=== PATIENT | female | born 1950 | race Caucasian/White ===

== ENCOUNTER 2019-01-03 18:53 | Emergency (ER) | payer OTHER ==
[~2019-01-03] VITALS: Ht 175.3 cm; Wt 61.2 kg
[~2019-01-03 18:53] MED LIST: ALBU90OI INH; BENZ2 PO; CIPR500 PO; HALO5 PO
[2019-01-03] MEDS ORDERED: Cephalexin500 MG PO (21:27)
== END 2019-01-03 21:50 | disposition home or self-care (01) ==
LOC: ER 18:53
DX: L03.115 Cellulitis of right lower limb (principal); L98.9 Disorder of the skin and subcutaneous tissue, unspecified; F20.9 Schizophrenia, unspecified; F17.210 Nicotine dependence, cigarettes, uncomplicated; Z88.5 Allergy status to narcotic agent; Z79.899 Other long term (current) drug therapy
CPT/HCPCS: 73610; 87070; 87077; 87147; 87186; 87205; 99283-25

== ENCOUNTER 2019-01-07 09:47 | Inpatient (IN) | payer SELFPAY ==
[~2019-01-07] VITALS: Ht 175.3 cm; Wt 66.2 kg
[~2019-01-07 09:47] MED LIST changes: +Cephalexin500 MG PO
[2019-01-07 11:28] LABS: BASOPHILS ABSOLUTE AUTO 0.02 K/mm3 (0.00-0.23); BASOPHILS PERCENT AUTO 0 % (0-2); EOSINOPHILS ABSOLUTE AUTO 0.31 K/mm3 (0.00-0.68); EOSINOPHILS PERCENT AUTO 5 % (0-6); Hemoglobin 10.1 g/dL (11.5-16.0); IMMATURE GRAN ABSOLUTE AUTO 0.04 K/mm3 (0.00-0.10); IMMATURE GRAN PERCENT AUTO 1 % (0-1); LYMPHOCYTES ABSOLUTE AUTO 1.25 K/mm3 (0.84-5.20); LYMPHOCYTES PERCENT AUTO 19 % (21-46); MONOCYTES ABSOLUTE AUTO 0.59 K/mm3 (0.16-1.47); MONOCYTES PERCENT AUTO 9 % (4-13); Mean Corpuscular HGB 29.3 pg (26.0-34.0); Mean Corpuscular HGB Conc 31.6 g/dL (31.5-36.5); Mean Corpuscular Volume 93 fL (80-100); Mean Platelet Volume 10.1 fL (9.1-12.4); NEUTROPHILS ABSOLUTE AUTO 4.38 K/mm3 (1.96-9.15); NEUTROPHILS PERCENT AUTO 66 % (41-73); Platelet Count 250 K/mm3 (150-400); RDW Coefficient Variation 16.1 % (11.7-14.2); RDW Standard Deviation 55.3 fL (35.1-46.3); Red Blood Cell Count 3.45 M/mm3 (3.80-5.20); White Blood Cell Count 6.59 K/mm3 (4.00-11.30)
[2019-01-07 11:54] LABS: Albumin, Blood 2.9 g/dL (3.4-5.0); Albumin/Globulin Ratio 0.7 (0.8-1.8); Bilirubin, Total 0.4 mg/dL (0.1-1.0); Bun/Creatinine Ratio 32.5 (12.0-20.0); Calcium, Blood 8.5 mg/dL (8.5-10.1); Globulin, Blood 4.1 g/dL (2.2-4.0); Potassium, Blood 4.2 mmol/L (3.5-5.5)
--- NOTE | 2019-01-07 18:30 | NUR ---
PATIENT IS ALERT AND ORIENTED AND COOPERATIVE WITH CARE. SHE HAS A FLIGHT OF IDEAS. SHE IS A CURRENT SMOKER. HER RIGHT LEG/FOOT IS RED AND SWOLLEN, WITH INFECTED ULCERS. PHOTOS TAKEN AND IN CHART. PATIENT IS INDEPENDENT IN HER ROOM. SHE AMBULATES WELL. PAIN TREATED PER ROSA. WILL CONTINUE TO MONITOR.
[2019-01-08 05:55] LABS: BASOPHILS ABSOLUTE AUTO 0.02 K/mm3 (0.00-0.23); BASOPHILS PERCENT AUTO 0 % (0-2); EOSINOPHILS ABSOLUTE AUTO 0.18 K/mm3 (0.00-0.68); EOSINOPHILS PERCENT AUTO 4 % (0-6); Hematocrit 30.8 % (33.0-51.0); Hemoglobin 9.5 g/dL (11.5-16.0); IMMATURE GRAN ABSOLUTE AUTO 0.02 K/mm3 (0.00-0.10); IMMATURE GRAN PERCENT AUTO 0 % (0-1); LYMPHOCYTES ABSOLUTE AUTO 1.25 K/mm3 (0.84-5.20); LYMPHOCYTES PERCENT AUTO 27 % (21-46); MONOCYTES ABSOLUTE AUTO 0.48 K/mm3 (0.16-1.47); MONOCYTES PERCENT AUTO 11 % (4-13); Mean Corpuscular HGB 28.6 pg (26.0-34.0); Mean Corpuscular HGB Conc 30.8 g/dL (31.5-36.5); Mean Corpuscular Volume 93 fL (80-100); Mean Platelet Volume 10.1 fL (9.1-12.4); NEUTROPHILS ABSOLUTE AUTO 2.64 K/mm3 (1.96-9.15); NEUTROPHILS PERCENT AUTO 58 % (41-73); Platelet Count 254 K/mm3 (150-400); RDW Coefficient Variation 16.1 % (11.7-14.2); RDW Standard Deviation 54.8 fL (35.1-46.3); Red Blood Cell Count 3.32 M/mm3 (3.80-5.20); White Blood Cell Count 4.59 K/mm3 (4.00-11.30)
--- NOTE | 2019-01-08 06:08 | NUR ---
SHIFT SUMMARY A/O, ABLE TO MAKE NEEDS KNOWN. COOPERATIVE WITH CARE. ANSWERS QUESTIONS APPROPRIATELY. NO C/O PAIN/DISCOMFORT. DID HOWEVER COMPLAIN OF ITCHING; STATES SHE MAY HAVE COME IN CONTACT WITH [facility]. NEW ORDER FROM ON-CALL PHYSICIAN FOR BENADRYL OT DOSE. NO ACUTE CHANGES. IV FLUIDS CONTINUING TO INFUSE WITHOUT COMPLICATIONS. HYPERTENSIVE THIS AM; HOWEVER, APPEARS ON TREND WITH PREVIOUS PRESSURES. MILD TACHYPNIA; ALL OTHERS VS STABLE. DID NOT APPEAR TO REST MUCH T/O SHIFT. NO OTHER ACUTE CHANGES. BED IN LOWEST POSITION. CALL LIGHT AND BELONGINGS WITHIN REACH. WCTM. REPORT TO ONCOMING RN.
[2019-01-08 06:24] LABS: Bun/Creatinine Ratio 45.5 (12.0-20.0); Calcium, Blood 8.6 mg/dL (8.5-10.1); Creatinine, Blood 1.23 mg/dL (0.40-1.00); Potassium, Blood 4.5 mmol/L (3.5-5.5)
--- NOTE | 2019-01-08 11:09 | NUR ---
Patient's speech is a bit slurred and quiet but still she is able to communicate. Patient states that she is homeless and can't negociate through the Social Security system well enough to receive any financial assistance. I point out that we have great social workers and discharge planners that can help but patient says that no one can help her and that she will leave here (the hospital) to live out on the streets again. I explore areas of dinity, evelia and possible resources and patient cycles back to this disdain she has for the Social security system, [place] and the jainism community. Patient seems weary, sad and hopeless and talks herself away from tangible resources and positve attitudes. Patient allowed me to pray for her and said, "That was very nice," at the conclusion of the prayer. I am not sure if anything was accomplished in my visit except for, I believe, patient felt cared for and heard for the 40 minutes I was in her room.
--- NOTE | 2019-01-08 18:33 | NUR ---
SHIFT SUMMARY IMC COMPLAINED OF RLE PAIN IN HER FOOT, RECEIVED TRAMADOL AND OXY THIS SHIFT, WHICH HELPED. UP INDEPENDENTLY IN ROOM. HAD 2 BM. MIVF RUNNING. POTENTIAL DISCHARGE MONDAY, WILL NEED SS TO CONSULT FOR SAFE DISCHARGE PLANS. CALL LIGHT IN REACH, WCTM
--- NOTE | 2019-01-09 06:32 | NUR ---
SHIFT SUMMARY PT IS A 68 Y/O FEMALE, ADMITTED FOR RLE CELLULITIS. SHE IS A&O X 3, WITH INTERMITTENT CONFUSION R/T HER SCHIZOPHRENIA, AND INDEPENDENT IN THE ROOM. PT DENIED ANY COMPLAINTS OF PAIN, NAUSEA OR SOB AND SLEPT WELL DURING THE NIGHT. PT RECEIVED NS AT 50 ML/HR THROUGH THE NIGHT. PTS BP WAS ELEVATED DURING THE NIGHT, AT 187/95 DURING AM VITALS. ALL OTHER VITALS STABLE. PT REFUSED AM LABS. NO OTHER ACUTE CHANGES IN PT CONDITION NOTED. WILL CONTINUE TO MONITOR AND TREAT PER EMAR UNTIL HAND OFF TO DAY SHIFT.
--- NOTE | 2019-01-09 11:17 | NUR ---
Patient is sleeping but easily awakens to the sound of her name. Patient's first question is "Am I Dying?" I take some time to talk about and dying and assure her that she is not dying at this particular time. Patient then tells me about the difficulties of living on the streets and says that at 68 years old she is too old for "this." She tells me of the good friends she has that are homeless too. We discuss the life she would like to have. She mentions things like being safe enough to sleep 7 or 8 hours at a time, of having food and water and a roof over her head. I explain that a director social will help her we these kinds of issues (I left a message with her director social about these housing concerns, yesterday). I provided emotional support, a calming presence and prayer. Patient voices appreciation.
--- NOTE | 2019-01-09 18:47 | NUR ---
PATIENT IS ALERT AND ORIENTED AND COOPERATIVE WITH CARE. SHE REFUSED BLOOD DRAWS THIS MORNING. DRY DRESSING APPLIED TO PATIENT RIGHT FOOT PER DR. BORRERO ORDERS. PATIENT IS INDEPENDENT IN ROOM. WILL CONTINUE TO MONITOR
--- NOTE | 2019-01-10 07:25 | NUR ---
SHIFT SUMMARY PT SLIGHTLY CONFUSED/FORGETFUL, PULLED OUT IV AND REFUSED A NEW ONE. NOTIFIED TYRONE PROTOTYPE TECHNICIAN AND HE ORDERED PO ABX FOR POSS D/C THURS. C/O PAIN IN R ANKLE X2 AND MEDICATED PER EMAR. SHE WAS ABLE TO GET SOME SLEEP ON AND OFF T/O NIGHT INDEPENDENT IN ROOM.
[2019-01-10] MEDS ORDERED: Lopressor 25 mg25 MG PO (12:08)
[2019-01-10] MEDS ORDERED: AMLO5 PO (12:10)
[2019-01-10] MEDS ORDERED: CEPH500 PO (12:11)
--- NOTE | 2019-01-10 13:00 | NUR ---
DISCHARGE NOTE PT HAS NOT PCP. DISCHARGE PLANNING INFORMS ME THAT THIS IS UNAVOIDABLE PT HAS NO INSURANCE OR MONEY. PT IS HOMELESS. PT HAS BEEN PROVIDED WITH LOCAL RESOURCES FOR THE HOMELESS. PT'S MEDS HAVE BEEN [facility] TO [facility]. I DID REFER HER TO [facility]. I PROVIDED HARDCOPY AND VERBAL INSTRUCTION FOR DISCHARGE RE: DIAGNOSES, MEDICATIONS, THE NEED TO MAKE A FOLLOW UP APPOINTMENT WITH A PHYSICAN. ESCORT VIA WHEELCHAIR PROVIDED TO THE PT. PERSONAL POSSESSIONS GATHERED AND SENT WITH PT. PT HAD NO FURTHER QUESTIONS
--- NOTE | 2019-01-10 13:26 | NUR ---
CALLED PT'S DAUGHTER CALLED DAUGHTER'S CONTACT NUMBER AND LEFT MESSAGE. PT LEFT HER COAT AND DISCHARGE PACKET IN HER ROOM WHEN SHE DISCHARGED. BELONGINGS HAVE BEEN GATHERED/LABELED AND PLACED IN PT BELONGINGS ([facility]).
--- NOTE | 2019-01-10 14:43 | NUR ---
Patient is in process for discharge when I enter the room. Patient tells me that she really has no place to go but she is use to living this way. She mentioned that she may stay in a hotel tonight. Patient stated that she feels much better. Patient satates that she will be ok. Volunteer then arrives to wheelchair the patient out.
== END 2019-01-10 13:13 | disposition home or self-care (01) | DRG 603 ==
LOC: ER 09:47 → MEDS 13:37
PROVIDERS: Internal Medicine; ADMIT Family Medicine
DX: L03.115 Cellulitis of right lower limb (principal); L97.319 Non-pressure chronic ulcer of right ankle with unspecified severity; N17.9 Acute kidney failure, unspecified; E86.0 Dehydration; D64.9 Anemia, unspecified; I10 Essential (primary) hypertension; F20.9 Schizophrenia, unspecified; F17.210 Nicotine dependence, cigarettes, uncomplicated; B95.5 Unspecified streptococcus as the cause of diseases classified elsewhere; B95.61 Methicillin susceptible Staphylococcus aureus infection as the cause of diseases classified elsewhere
CPT/HCPCS: 36415; 80048; 80053; 85025; 93971; 96365; 99284-25; A9270; J0360; J0690; J1644; J3010; J7030; Q0163

== ENCOUNTER 2021-08-18 16:22 | Observation (INO) | payer OTHER ==
[~2021-08-18] VITALS: Ht 175.3 cm; Wt 64.1 kg
[~2021-08-18 16:22] MED LIST changes: +AMLO5 PO; +CEPH500 PO; +Lopressor 25 mg25 MG PO
[2021-08-18 17:54] LABS: BASOPHILS ABSOLUTE AUTO 0.04 K/mm3 (0.00-0.23); BASOPHILS PERCENT AUTO 1 % (0-2); EOSINOPHILS ABSOLUTE AUTO 0.21 K/mm3 (0.00-0.68); EOSINOPHILS PERCENT AUTO 4 % (0-6); Hematocrit 40.6 % (33.0-51.0); Hemoglobin 13.3 g/dL (11.5-16.0); IMMATURE GRAN ABSOLUTE AUTO 0.01 K/mm3 (0.00-0.10); IMMATURE GRAN PERCENT AUTO 0 % (0-1); LYMPHOCYTES ABSOLUTE AUTO 0.98 K/mm3 (0.84-5.20); LYMPHOCYTES PERCENT AUTO 16 % (21-46); MONOCYTES ABSOLUTE AUTO 0.47 K/mm3 (0.16-1.47); MONOCYTES PERCENT AUTO 8 % (4-13); Mean Corpuscular HGB 30.9 pg (26.0-34.0); Mean Corpuscular HGB Conc 32.8 g/dL (31.5-36.5); Mean Corpuscular Volume 94 fL (80-100); Mean Platelet Volume 10.5 fL (9.1-12.4); NEUTROPHILS ABSOLUTE AUTO 4.31 K/mm3 (1.96-9.15); NEUTROPHILS PERCENT AUTO 72 % (41-73); Platelet Count 200 K/mm3 (150-400); RDW Coefficient Variation 12.6 % (11.7-14.2); RDW Standard Deviation 43.8 fL (35.1-46.3); White Blood Cell Count 6.02 K/mm3 (4.00-11.30)
[2021-08-18 17:56] LABS: Ethanol (Alcohol), Blood, Med <3 mg/dL
[2021-08-18 18:10] LABS: Alanine Aminotransfer (ALT/SGP 35 U/L (12-78); Albumin, Blood 3.4 g/dL (3.4-5.0); Albumin/Globulin Ratio 1.1 (0.8-1.8); Alk Phos 73 U/L (50-136); Anion Gap 4 mmol/L (6-16); Aspartate Aminotrans (AST/SGOT 28 U/L (12-37); Bilirubin, Total 0.8 mg/dL (0.1-1.0); Blood Urea Nitrogen 15 mg/dL (8-24); Bun/Creatinine Ratio 26.7 (12.0-20.0); CO2, Blood 34 mmol/L (21-32); Calcium, Blood 9.8 mg/dL (8.5-10.1); Chloride, Blood 99 mmol/L (98-108); Creatinine, Blood 0.56 mg/dL (0.40-1.00); Globulin, Blood 3.2 g/dL (2.2-4.0); Glomerular Filtration Rate >60 (60-); Glucose, Blood 81 mg/dL (70-99); Potassium, Blood 3.8 mmol/L (3.5-5.5); Sodium, Blood 137 mmol/L (136-145); Total Protein, Blood 6.6 g/dL (6.4-8.2)
[2021-08-18 18:24] LABS: Acetaminophen, Random <2.0 ug/mL (10.0-30.0); Salicylate <1.7 mg/dL (2.8-20.0)
[2021-08-18 22:39] LABS: Influenza A, PCR NEGATIVE (NEGATIVE); Influenza B, PCR NEGATIVE (NEGATIVE); Resp Syncytial Virus, PCR NEGATIVE (NEGATIVE); SARS-Cov-2 (COVID-19) PCR, MMC NEGATIVE (NEGATIVE)
[2021-08-19 06:32] LABS: Source, Urine Clean Catch
[2021-08-19 06:52] LABS: Appearance, Urine Hazy (Clear); Bilirubin, Urine Neg (Neg); Blood, Urine 1+ (Neg); Color, Urine Yellow (P-Yellow); Glucose Qualitative, Urine Neg (Neg); Ketones, Urine Neg (Neg); Leukocyte Esterase, Urine Neg (Neg); Nitrite, Urine Pos (Neg); Protein, Urine 1+ (Neg); Urobilinogen, Urine NORM (Normal); pH, Urine 6.5 (5.0-8.0)
[2021-08-19 07:09] LABS: U Amphetamine Screen Not Detected; U Barbituate Screen Not Detected; U Benzodiazapine Screen Not Detected; U Buprenorphine Screen Not Detected; U Cannabinoids Screen Not Detected; U Cocaine Screen Not Detected; U Methadone Screen Not Detected; U Methamphetamine Screen Not Detected; U Opiates Screen Not Detected; U Oxycodone Screen Not Detected; U Phencyclidine Screen Not Detected; U Propoxyphene Screen Not Detected
[2021-08-19 07:18] LABS: Bacteria Many /hpf; Red Blood Cells, Urine 0-2 /hpf (0-2); Squamous Epithelial Cells Rare /hpf (Few)
[2021-08-20 13:18] LABS: BASOPHILS ABSOLUTE AUTO 0.02 K/mm3 (0.00-0.23); BASOPHILS PERCENT AUTO 0 % (0-2); EOSINOPHILS ABSOLUTE AUTO 0.24 K/mm3 (0.00-0.68); EOSINOPHILS PERCENT AUTO 5 % (0-6); Hematocrit 37.1 % (33.0-51.0); Hemoglobin 12.2 g/dL (11.5-16.0); IMMATURE GRAN ABSOLUTE AUTO 0.01 K/mm3 (0.00-0.10); IMMATURE GRAN PERCENT AUTO 0 % (0-1); LYMPHOCYTES ABSOLUTE AUTO 1.41 K/mm3 (0.84-5.20); LYMPHOCYTES PERCENT AUTO 29 % (21-46); MONOCYTES ABSOLUTE AUTO 0.57 K/mm3 (0.16-1.47); MONOCYTES PERCENT AUTO 12 % (4-13); Mean Corpuscular HGB Conc 32.9 g/dL (31.5-36.5); Mean Corpuscular Volume 94 fL (80-100); Mean Platelet Volume 10.9 fL (9.1-12.4); NEUTROPHILS ABSOLUTE AUTO 2.65 K/mm3 (1.96-9.15); NEUTROPHILS PERCENT AUTO 54 % (41-73); Platelet Count 193 K/mm3 (150-400); RDW Standard Deviation 45.1 fL (35.1-46.3); Red Blood Cell Count 3.94 M/mm3 (3.80-5.20)
[2021-08-20 13:24] LABS: Albumin, Blood 3.1 g/dL (3.4-5.0); Anion Gap 7 mmol/L (6-16); Blood Urea Nitrogen 24 mg/dL (8-24); Bun/Creatinine Ratio 31.3 (12.0-20.0); CO2, Blood 30 mmol/L (21-32); Calcium, Blood 9.5 mg/dL (8.5-10.1); Chloride, Blood 105 mmol/L (98-108); Creatinine, Blood 0.77 mg/dL (0.40-1.00); Glomerular Filtration Rate >60 (60-); Glucose, Blood 95 mg/dL (70-99); Phosphorus, Blood 4.3 mg/dL (2.5-4.9); Sodium, Blood 142 mmol/L (136-145)
[2021-08-20 13:29] LABS: Alanine Aminotransfer (ALT/SGP 34 U/L (12-78); Albumin, Blood 3.2 g/dL (3.4-5.0); Albumin/Globulin Ratio 1.1 (0.8-1.8); Alk Phos 58 U/L (50-136); Anion Gap 6 mmol/L (6-16); Aspartate Aminotrans (AST/SGOT 39 U/L (12-37); Bilirubin, Total 0.4 mg/dL (0.1-1.0); Blood Urea Nitrogen 24 mg/dL (8-24); Bun/Creatinine Ratio 30.2 (12.0-20.0); CO2, Blood 30 mmol/L (21-32); Calcium, Blood 9.5 mg/dL (8.5-10.1); Chloride, Blood 105 mmol/L (98-108); Globulin, Blood 2.9 g/dL (2.2-4.0); Glomerular Filtration Rate >60 (60-); Glucose, Blood 95 mg/dL (70-99); Sodium, Blood 141 mmol/L (136-145); Total Protein, Blood 6.1 g/dL (6.4-8.2)
--- NOTE | 2021-08-20 15:19 | NUR ---
ADMIT NOTE 70 YEAR FEMALE ADMITTED WITH 2 MD HOLD FOR PLACEMENT. PT IS HOMELESS WITH HX OF SCHITZOPHRENIA AND UNABLE TO CARE FOR HERSELF. REPORT RECEIEVED FROM CONNER IN ER AND PT BROUGHT UP BY SARITA AND WAS A LIFT TRANSFER TO BED. PT ORIENTED TO ROOM, CALL LIGHT, PHONE AND BED CONTROLS. ADMIT HX COMPLETED. PT APPEAS A&O WITH SOME DELUSIONAL/GRANDIOSE THOUGHTS BUT IS PLEASANT AND COOPERATIVE WITH CARE. FLU SHOT GIVEN WITH PT CONSENT, PT TOLERATED WELL.
--- NOTE | 2021-08-21 04:27 | NUR ---
CRACKING STILL OPERATOR SUMMARY ADMITTED FOR DISABILITY AND PLACEMENT. PT IS FULL CODE. SHE IS HOMELESS AND IS UNABLE TO CARE FOR HERSELF. PT REPORTED 10/10 PAIN TO HER BILATERAL KNEES AND LOWER EXTREMITIES AT THE START OF SHIFT. MEDICATED WITH TYLENOL. SHE IS A MAX ASSIST TO [facility] DUE TO WEAKNESS AND PAIN IN THE BILATERAL KNEES. PT HAS BEEN RESTING THROUGHOUT THE SHIFT.
--- NOTE | 2021-08-21 16:22 | NUR ---
PT IS A/OX2. SELF AND PLACE. THE PT IS UP TO THE SIDE OF THE BED AND HAS SAT UP ON THE SIDE OF THE BED FOR MOST OF THE DAY. THE PT REPORTS BILATERAL KNEE PAIN NO REDNESS OR SWELLING NOTICED. TYLENOL GIVEN FOR PAIN. PT APPEARS TO BE BREATHING EASILY ON RA AT THIS TIME. CALL LIGHT IN REACH, WILL CONTINUE TO MONITOR AND ASSESS FOR CHANGES
--- NOTE | 2021-08-22 04:29 | NUR ---
CUSTOM HARVESTER SUMMARY ADMITTED FOR SEVERE DISABILITY IN SEARCH OF PLACEMENT. PT IS FULL CODE. SHE IS HOMELESS. PT IS A 1-2 PERSON MAX ASSIST TO BSC. SHE HAS BEEN RESTING THROUGHOUT THE SHIFT WITH NO COMPLAINTS.
--- NOTE | 2021-08-22 14:52 | NUR ---
Patient is awake,alert and oriented time two with episode of forgetfullness. patient ate 100% of lunch and breakfast. She denies pain and dicomfort. patient was advised to call for assistance.
--- NOTE | 2021-08-23 06:34 | NUR ---
Shift summary Patient AAOX3, CONFUSION NOTED AT TIME. Vital stable, pleasant to care. No acute events during the nigh. We will continue with monitoring patient.
--- NOTE | 2021-08-23 13:34 | NUR ---
Patient is lying in bed and resting, but easily awakens to the sound of her name. Pt answers questions very slowly and is quit vague in her reponses. She tells me that she is feeling "ok" and that in her life outside the hospital that she is "getting along." When asked her about her friends and support she says, "I have enough to get by." She says "yes" to prayer and so I gladly provide prayer. Patient responds well to the prayer and she voices appreciation for it. I will continue to remain available to patient and family.
--- NOTE | 2021-08-23 18:16 | NUR ---
SHIFT SUMMARY NO ACUTE CHANGES THIS SHIFT. SKIN TO COCCYX IS REDDENED BUT BLANCHABLE AND SEEMS TO BE SHOWING SIGNS OF IMPROVEMENT. SHE IS A/O X2; PLEASANT AND COOPERATIVE WITH CARE. PT IS CURRENTLY AWAITING PLACEMENT. VSS. WILL REPORT TO FARSHAD RN.
--- NOTE | 2021-08-24 04:19 | NUR ---
Shift Summary Patient is waiting for placement and gardienship. She is stable, no complaint voices. Use bedside comode with assist. No change in patient status. We will continue to monitor.
--- NOTE | 2021-08-24 17:46 | NUR ---
SHIFT SUMMARY NO ACUTE CHANGES THIS SHIFT. PT IS STILL AWAITING PLACEMENT. SPOKE WITH PCI AND SHE RELAYED THE CONVERSATION THAT SHE HAD WITH DR. MOSLEY ABOUT THE PT'S HOLD. THE HOLD WILL NOT BE RENEWED WHEN IT EXPIRES. PT 1/SBA TO BSC. PUTTING ON MAKEUP AND TALKING TO SELF THIS SHIFT BUT REMAINS PLEASANT AND COOPERATIVE. VSS. WILL REPORT TO NOC RN.
--- NOTE | 2021-08-25 18:06 | NUR ---
NO ACUTE CHANGES THIS SHIFT. PATIENT A/OX2, CALM AND COOPERATIVE WITH CARE. AWAITING GUARDIANSHIP AND PLACEMENT.
--- NOTE | 2021-08-26 04:00 | NUR ---
Pt is alert and oriented x3, sometimes forgetful but she is redirectable. Patient is sitting on her bed putting make up on. She is pleasant when being approached. Snacks given. No signs of distress. No complains of pain. Bed in lowest position. Call light within reach.
--- NOTE | 2021-08-26 17:01 | NUR ---
NO ACUTE CHANGES THIS SHIFT. PATIENT AWAITING GUARDIANSHIP AND PLACEMENT. VERY PLEASANT AND COOPERATIVE WITH CARE. NO NEW CONCERNS.
--- NOTE | 2021-08-27 18:27 | NUR ---
PATIENT REPORTS SKIN BURING ON BOTTOM, IN GLUTEAL FOLD. THE AREA IS NOT RED BUT BARRIER CREAM WAS STARTED TO AVOID AN ISSUE. SHE REPORTS NO ANXIETY OR DEPRESSION. SHE DID REPORT KNEE PAIN BECAUSE OF A PREVIOUS BREAK THAT SHE REPORTED. TYLENOL WAS SOMEWHAT EFFECTIVE.
--- NOTE | 2021-08-28 05:00 | NUR ---
Patient is alert and oriented x3, forgetful of place. she is calm and cooperative. no complains of pain. no signs of distress. pt is able to pivot to the commode independently. able to let needs be known. provided her some snacks before bedtime. patient lies quietly on her bed call light within reach.
--- NOTE | 2021-08-28 18:41 | NUR ---
SHIFT SUMMARY- PT ALERT AND ORIENTED TO SELF PLACE AND DATE. SHE IS OCCASSIONALLY CONFUSED AND FORGETFUL. PT HAS REMAINED PLEASENT T/O THE DAY WITH FREQUENT CHECKS FOR PT SAFETY. PT CURRENTLY IN BED, CALL LIGHT IN REACH, BSC AT THE BEDSIDE, PT IS A 1PA FOR SAFETY TO THE BSC. PT REFUSED HER LOVENOX INJECTION STATING "I ALREADY HAD THAT", STAFF INFORMED HER IT IS ORDERED EVERY DAY MEDICINE AND SHE STATED "OH NO, NOT EVERY DAY, I DIDN'T AGREE TO THAT!" PT ADIMANTLY REFUSED TO TAKE IT.
--- NOTE | 2021-08-29 05:31 | NUR ---
PT IS AOx3. Patient has hx of schizophrenia. Forgetful but pleasant. Patient transfers from bed to commode independently. She stays awake at night and takes a few naps. No complains of pain. No signs of distress. Call light within reach.
--- NOTE | 2021-08-29 18:45 | NUR ---
SHIFT SUMMARY- PT C/O NAUSEA AND LEG PAIN THIS EVENING, MEDICATED PRN PER EMAR. PT HAD A SPOUNGE BATH TODAY AND HAIR WAS WASHED WITH A SHOWER CAP. PT DECLINED TO GO TO THE SHOWER STATING THAT HER LEGS WERE BROKEN. WHEN STAFF ASKED IF SHE COULD USE A W/C TO GET TO THE BATHROOM SHE AGREED, THEN SHE BECAME ANGRY WITH STAFF WHEN THEY PRESENTED A W/C SAYING SHE JUST DOESNT FEEL LIKE GETTING IN THE SHOWER. NO ACUTE CHANGES T/O THE DAY. SHE DID C/O UPSET STOMACH AND LEG PAIN REQUESTING PAIN MEDICATION THIS EVENING MEDICATD PER EMAR.
--- NOTE | 2021-08-30 05:17 | NUR ---
Pt is alert and oriented x4. Chairbound. Patient is attention seeking. He does not want to take all night medications. He complains of pain of 5/10 bilateral leg pain. No signs of distress. Pt is keeps asking for snacks and coffee. Snacks provided but educated pt about diet. Patient insist in sleeping on chair tonight and not the bed. Call light within reach. He is a max assist with kirsty lift.
--- NOTE | 2021-08-30 05:19 | NUR ---
Pt is alert and oriented x3. Approachable and friendly. No complains of pain. No signs of distress. Snacks provided. Patient is sitting on her bed combing her hair and putting her make up. Patient transfers to the commode independently. Call light within reach.
--- NOTE | 2021-08-30 17:19 | NUR ---
SHIFT SUMMARY PT IS ALERT AND ORIENTED, PLEASANT AND COOPERATIVE WITH CARE. THE PATIENT DID NOT EAT MUCH BREAKFAST. MEDICATED 1X FOR PAIN IN LEGS. VSS. NO ACUTE CHANGES AT THIS TIME. THIS NURSE WILL CONTINUE TO CARE FOR THE PATIENT UNTIL SHIFT REPORT IS GIVEN TO ONCOMING NURSE.
--- NOTE | 2021-08-31 06:29 | NUR ---
Patient is alert and oriented. No complains of pain. No signs of distress. patient is independent in transferring from bed to bedside commode. She is able to ask for help. She is pleasant. Call light within reach.
--- NOTE | 2021-08-31 17:33 | NUR ---
SHIFT SUMMARY PATIENT DENIES PAIN, NAUSEA, AND SHORTNESS OF BREATH. PATIENT IS A SBA TO THE BSC. PATIENT WORKED WITH PT TODAY. PATIENT HAS POOR PO INTAKE. PATIENT EATS SMALL SNACKS THROUGHOUT THE DAY. PATIENT IS PLEASANT AND COOPERATIVE WITH CARE. PATIENT IS AWAITING PLACEMENT.
--- NOTE | 2021-09-01 04:18 | NUR ---
SUMMARY: PT A/OX3, IS PLEASANT AND COOPERATIVE W/CARE AND SPECIFIES NEEDS. SHE OCCASIONALLY TALKS TO SELF BUT SHOWS NO S/S HALLUCINATIONS. SHE'S SBA OOB BUT IS ABLE TO T/F SELF SAFELY TO BSC AND IS AWARE OF LIMITATIONS. SNACKS AND BEVERAGES PROVIDED PER REQUEST AND PT DENIED PAIN/COMPLAINTS. VSS/AFEBRILE AND NO ACUTE CHANGES. PLACEMENT AND GUARDIANSHIP PENDING. WCTM/REPORT TO DAY RN.
--- NOTE | 2021-09-01 18:04 | NUR ---
SUMMARY PT SITTING UP IN BED EATING DINNER, PT HAS BEEN PLEASANT AND COOPERATIVE WITH CARE T/O THE DAY UP TO THE BSC WITH MIN ASSIST, USES THE CALL LIGHT APPROPRIATELY, DENIES PAIN OR SOB, CARE MANAGEMENT WORKING ON A DISCHARGE PLAN, VSS, WILL CONT TO MONITOR
--- NOTE | 2021-09-02 05:01 | NUR ---
PT WAS A/OX3-4 THROUGHOUT THE NOC SHIFT. SHE WAS INDEPENDENT IN HER ROOM TO [facility] AND USES HER CALL LIGHT FOR NEEDS. SHE DID HAVE C/O OF BILATERAL KNEE PAIN AND WAS MEDICATED WITH 650 MG OF TYLENOL AT 2030. THERE WERE NO OTHER CHANGES TO REPORT. CALL LIGHT IS WITHIN REACH.
--- NOTE | 2021-09-02 07:32 | NUR ---
pt sleeping, lightly snoring, wakes easily, a/ox3, cooperative with care, follows commands well, lungs are clear, exp snore while asleep, on r/a, no cough noted, hrr, no edema noted, ppp+1, cap refill <3sec, vs stable, afebrile, btx4, abd flat soft nontender, voids via bsc, skin c/w/d, maew, stand by assist in room but indep to bsc, stephane, call light in reach.
--- NOTE | 2021-09-02 18:31 | NUR ---
Pt has been cooperative but odd, she puts her makeup on and removes it. no complaints or acute changes today, call light in reach.
--- NOTE | 2021-09-03 05:08 | NUR ---
SHIFT SUMMARY: PT HAS BEEN A/OX3-4. SHE'S BEEN PLEASANT AND COOPERATIVE THIS NOC SHIFT. NO ACUTE CHANGES TO REPORT. WE'LL CONTINUE TO MONITOR.
--- NOTE | 2021-09-03 17:20 | NUR ---
PATIENT HAD A QUIET DAY. SLEEPING MOST EVERYTIME I WAS IN THE ROOM. INDEPENDENT TO BSCC. REFUSED DIET TRAYS. MEDICATED PER E-SEP. AWAITING PLACEMENT. WILL MONITOR.
--- NOTE | 2021-09-04 05:12 | NUR ---
SHIFT SUMMARY: PATIENT IS REPORTING BILAT HIP AND KNEE PAIN, TYLENOL WAS GIVEN WITH GOOD EFFECT. VSS, PLEASANT AND COOPERATIVE WITH CARE.
--- NOTE | 2021-09-04 16:30 | NUR ---
PATIENT HAS BEEN COHERENT AND PLEASANT TODAY. INDEPENDENT WITH BSCC. FAIR APPETITE, TOLERATED PO FLUIDS WELL. NO IV PRESENT. MEDICATED PER E-MAR. AWAITING PLACEMENT FOR DISCHARGE.
--- NOTE | 2021-09-05 05:58 | NUR ---
SHIFT SUMMARY: PATIENT SLEPT WELL THIS SHIFT. LOW GRADE TEMP. OBSERVED, PATIENT REFUSED TYLENOL. "I DON'T HAVE ANY PAIN". PO FLUIDS ENCOURAGED. UP TO THE BCS INDEPENDANTLY.
--- NOTE | 2021-09-05 16:29 | NUR ---
PLEASANT AND COOPERATIVE TODAY. CONVERSATIONALLY APPROPRIATE. VS STABLE. DENIED PAIN. MEDICATED PER E-MAR. TOLERTED FOOD, LIQUIDS AND SOME SNACKS BETWEEN MEALS. INDEPENDENT TO BSCC TO VOID AND BM'S. AWAITING PLACEMENT.
--- NOTE | 2021-09-06 03:14 | NUR ---
SHIFT SUMMARY: PATIENT REPORTS HEADACHE, TYLENOL WAS GIVEN WITH GOOD EFFECT. VSS, ATE 100% OF DINNER. PLEASANT AND COOPERATIVE WITH STAFF.
--- NOTE | 2021-09-06 10:52 | NUR ---
RECEIVED D/C FROM PSYCHIATRY EARLIER. DR. SOTO ROUNDING NOW. PATIENT STATES HE WILL NEED A TAXI FOR D/C, HAS NO RESOURCES TO PICK HIM UP. MARIANO PALACIOS CONCRETE PRODUCTS DISPATCHER NURSE MADE AWARE.
--- NOTE | 2021-09-06 17:09 | NUR ---
PATIENT HAD AN UNEVENTFUL DAY. AAO X 4. COOPERATIVE AND CONVERSATIONALLY APROPRIATE. TOLERATED FOOD AND FLUIDS WELL. NO C/O PAIN VOICED. NO IV PRESENT. AWAITING PLACEMENT FOR DISCHARGE.
--- NOTE | 2021-09-07 04:12 | NUR ---
SHIFT SUMMARY PATIENT CALM AND COOPERATIVE NO NEEDS EXPRESSED. HAD MEDIUM BM. AD PATSY IN ROOM. NO SIGNIFICANT EVENTS ON NOC.
--- NOTE | 2021-09-07 18:07 | NUR ---
SHIFT SUMMARY NO ACUTE CHANGES THIS SHIFT. PT WAS ABLE TO GIVE HERSELF A BED BATH TODAY. STILL AWAITING PLACEMENT AND GAURDIANSHIP.
--- NOTE | 2021-09-08 06:05 | NUR ---
SHIFT SUMMARY PATIENT HAD NO ACUTE CHANGES. AXO X3 AND SBA TO BSC. NO IV ACCESS. DENIES PAIN, SOB, AND N/V. VSS/AFEBRILE. PATIENT FOCUS ON HER BELONGINGS T/O THE SHIFT. AWAITING PLACEMENT. CALL LIGHT IN REACH. BED IN LOWEST POSITION. WWCTM.
--- NOTE | 2021-09-08 18:38 | NUR ---
SHIFT SUMMARY NO ACUTE CHANGES THIS SHIFT. PT HAS BEEN TRANSFERRING HERSELF TO THE BEDSIDE COMMODE. WILL CONTINUE TO MONITOR.
--- NOTE | 2021-09-09 04:39 | NUR ---
SHIFT SUMMARY PT AWAKE MUCH OF THE EVENING. ONLY SLEEPING BRIEFLY A COUPLE TIMES SCATTERED THROUGH THE NIGHT. GETS UP INDEPENDENTLY IN HER ROOM. ATE A FEW SNACKS. KEPT HERSELF BUSY FOLDING BELONGINGS, DOING HER MAKEUP ETC. NO ACUTE CHANGES THIS EVENING. VITAL SIGNS STABLE. PT AWAITS GAURDIANSHIP AND PLACEMENT.
--- NOTE | 2021-09-09 18:01 | NUR ---
SHIFT SUMMARY; PATIENT HAD UNEVENTFUL DAY. SHE IS AO X 3 TODAY. HAS FLIGHT OF IDEAS AT TIMES. SHE REMAINS ON HER BED, SWITCHING POSITIONS OFTEN HOWEVER DOES NOT WALK AROUND ROOM. CHOSING INSTEAD TO WATCH THE COMINGS AND CONNOR IN THE HALLWAY IN FRONT OF HER ROOM. PATIENT DOES NOT REQUIRE ASSIST TO TOILET AND IS ABLE TO FEED HERSELF. WILL CONTINUE TO MONITOR THIS PATIENT CLOSELY JJ ANGUIANO RN
--- NOTE | 2021-09-10 04:56 | NUR ---
SHIFT SUMMARY Pt rested well, med per mar x 1 for c/o pain to BLE's, pt reported good pain relief after. Pt up with 1 person assist/walker due to leg pain, ambulated to bathroom x1 and voided 800 ml cloudy, petra urine. VSS, skin intact, pt george po well. Anticipate d/c once guardianship completed and placement determined.
--- NOTE | 2021-09-10 16:40 | NUR ---
SHIFT SUMMARY; PATIENT EDUCATED ON NEED FOR GETTING UP AND WALKING WITH WALKER BY PHYSICAL THERAPY AND THIS RN. PATIENT VERBALIZED UNDERSTANDING BUT REFUSES TO GET UP AND WALK IN ROOM. STATING SHE DOESN'T WANT TO SHE HAS "BROKEN LEGS" ATTEMPTS TO PURSUADE PATIENT THAT HER LEGS ARE NOT CURRENTLY BROKEN ARE UNSUCCESSFUL. PATIENT DOES GET UP X 2 TODAY ON HER OWN TO USE BATHROOM USING WALKER BUT COMES IMMEDIATELY BACK TO BED AFTERWARDS. WILL REMAIN AVAILABLE FOR THIS PATIENT FOR ANY WANTS OR NEEDS UNTIL HAND OFF AT SHIFT CHANGE TO [facility] SHIFT RN. JJ ANGUIANO RN
--- NOTE | 2021-09-11 04:57 | NUR ---
SHIFT SUMMARY Pt resting in room but was awake for the majority of the shift. Pt had good appetite and ate several snacks and also drank her ensure. Pt up to bathroom independently with walker, voiding without difficulty, pt reports having a small, formed bm this shift. Med per mar for c/o leg pain, no numbness/tingling. VSS, anticipate d/c when guardianship placed and placement determined.
--- NOTE | 2021-09-11 17:06 | NUR ---
NO ACUTE CHANGES AT THIS TIME. PT AOX3 AND COOPERATIVE OF CARE. PT IS INDEPENDENT IN ROOM AND CAN MAKE NEEDS KNOWN. CALL LIGHT IS WITHIN REACH, WILL CONTINUE TO MONITOR.
--- NOTE | 2021-09-12 05:44 | NUR ---
SHIFT SUMMARY PATIENT ALERT AND ORIENTED X2. HAD NO COMPLAINTS OF PAIN OR SHORTNESS OF BREATH. NO ACUTE ISSUES NOTED OVERNIGHT. CALL LIGHT WITHIN REACH. REPORT GIVEN TO ONCOMING RN.
--- NOTE | 2021-09-12 17:28 | NUR ---
NO ACUTE CHANGES AT THIS TIME. PT AOX3 AND COOPERATIVE IF ALL CARE. PT INDEPENDENT IN ROOM AND ABLE TO MAKE NEEDS KNOWN. CALL LIGHT IS WITHIN REACH WILL CONTINUE TO MONITOR.
--- NOTE | 2021-09-13 05:55 | NUR ---
70 year old female admitted 08/18/2021 with AMS homelessness, suspected Schitzophrenia but according to chart notes changed to dementia. PT is alert pleasant poor historian. Indep in room, able to communicate. appetite good , room air, co mild bilat pain relieved by tyl 650 mg po PRN. DC planning to safe place. HX of nicotine dependence currently using 7 mg topical nicotine patch. Guardianship letter in chart per Psych [place].
--- NOTE | 2021-09-13 17:51 | NUR ---
SHIFT SUMMARY PT AxOx3-4 WITH INTERM CONFUSION. PLESANT AND COOPERATIVE WITH CARE. PT HAD BED BATH TODAY. GOOD APPETITE. VITALS REVIEWED. PT DENIES PAIN THIS SHIFT. CURRENT PLAN PENDING PLACEMENT. PT CURRENTLY RESTING IN BED WITH CALL LIGHT IN REACH. DENIES ANY NEEDS AT THIS TIME.
--- NOTE | 2021-09-14 05:23 | NUR ---
PT indep in room pleasant & cooperative. Appetite good ate 100% dinner than said she hadn't eaten & ate a full sandwitch. Skin very pale & PT applies large amt makeup. Needs safe placement due to dementia, & homelessness.
--- NOTE | 2021-09-14 17:36 | NUR ---
PATIENT IS ALERT AND PLEASANTLY CONFUSED. SHE IS INDEPENDENT IN HER ROOM. CALLS APPROPRIATELY. NO C/O OF PAIN. UP TO BATHROOM. WILL CONTINUE TO MONITOR
--- NOTE | 2021-09-15 06:57 | NUR ---
PT continues pleasant & cooperative with dementia versus schitzophrenia per note. Medicated for mild bilat hip & le pain with helpful effect. Needs safe dc paln for homelessness & dementia
--- NOTE | 2021-09-15 15:55 | NUR ---
NO ACUTE CHANGES THIS SHIFT. PATIENT A&O X3, CALM AND COOPERATIVE WITH CARE. DENIES PAIN OR DISCOMFORT. AWAITING GUARDIANSHIP AND PLACEMENT.
--- NOTE | 2021-09-16 06:40 | NUR ---
Patient is alert and oriented x4, independent. No signs of distress. No SOB. Complains of pain on her knee, PRN pain medication given. Patient also ask for melatonin for sleep. Snacks provided. Call light within reach.
--- NOTE | 2021-09-16 17:59 | NUR ---
NO ACUTE CHANGES THIS SHIFT. PATIENT A&O X3, CALM AND COOPERATIVE WITH CARE. C/O PAIN TO BILATERAL LEGS, TYLENOL ADMINISTRATED AND EFFECTIVE. AWAITING GUARDIANSHIP AND PLACEMENT.
--- NOTE | 2021-09-17 03:45 | NUR ---
Patient AAOX3, no acute distress noted. Patient pleasant and cooperative with care. Patient is able to communicate her need. Bed in low position, call lig within reach. We will continue to monitor patient for any changes.
--- NOTE | 2021-09-17 17:42 | NUR ---
SHIFT SUMMARY: NO CHANGES TO REPORT. PATIENT A&O X 3-4, ABLE TO VERBALIZE NEEDS. NO SOB AT RA. C/O PAIN TO BILATERAL LEGS, TYLENOL ADMINISTRATED AND EFFECTIVE.
--- NOTE | 2021-09-18 05:10 | NUR ---
Patient AAOX3, had a visitor today that we assumed brings her cigarettes. Patient smoke in the room. She then denied it and stated her friend did it. She was reeducated about it. Bed in low position, call light in reach. We will continue to monitor.
--- NOTE | 2021-09-18 11:33 | NUR ---
image scientist notifed approximently 1030 for patient going into bathroom and smoking. I said jake. Nohemi said just a minite im peeing. I was opening the bathroom door, and her pants were not down, she was trying to hole the door closed. I told Charge nurse. Cigarettes/industrial automation specialist were both confinscated. Put in locked drawer. image scientist said if it this continues, she will lock the bathroom door.
--- NOTE | 2021-09-18 16:58 | NUR ---
SHIFT SUMMARY PT AOX4; DENIES CP OR ANY PAIN DURING THIS SHIFT. THE SYSTEMS SOFTWARE SPECIALIST CAUGHT THE PT SMOKING IN THE ROOM. TAX SERVICES INTERN CONFISCATED THE CIGARETTE AND BIOCHEMICAL ENGINEER. THIS RN EDUCATED THE PT THAT SMOKING IS NOT ALLOWED IN THIS FACILITY. SHE VERBALIZED UNDERSTANDING. NO OTHER ACUTE CHANGES.
--- NOTE | 2021-09-19 04:30 | NUR ---
DRILL SETUP OPERATOR SUMMARY AWAKE AND UP IN ROOM ON OCCASIONS. DENIED DISTRESS EACH TIME STAFF COME IN. CURRENTLY RESTING QUIETLY WITH CALL LIGHT IN REACH.
--- NOTE | 2021-09-19 16:21 | NUR ---
PT IS A/OX3, PLEASANT AND COOPERATIVE. THE PT IS UP IND IN HER ROOM, PT APPEARS TO BE BREATHING EASILY ON RA AT THIS TIME. THE PT REPORTED BILATERAL LEG PAIN TYLENOL WAS GIVEN REQUESTED. PT STATED THAT HER LEGS WERE BROKEN, HOWEVER, THE PT WAS UP AMBULATING AND TOOK A SHOWER TODAY. CALL LIGHT IN REACH WILL CONTINUE TO MONITOR AND ASSESS FOR CHANGES
--- NOTE | 2021-09-19 23:09 | NUR ---
TRANSFER PT TRANSFERRED TO 342. REPORT GIVEN TO ECTOR. ALL PT BELONGINGS TRANSFERRED TO ROOM.
--- NOTE | 2021-09-20 04:39 | NUR ---
TUBE DRAWING SUPERVISOR SUMMARY PT WAS TRANSFERRED FROM [facility]. SHE HAS BEEN PLEASANT AND COOPERATIVE. THE PATIENT IS INDEPENDENT IN THE ROOM. SHE IS AWAITING GUARDIANSHIP. NO COMPLAINTS OF PAIN. RESTING COMFORTABLY.
--- NOTE | 2021-09-20 17:43 | NUR ---
Patient was alert and orient x 1-2. She was unable to tell this RN the year. She was pleasant and had minimal requests. Patient appetite was 100% for meals She spent time in the room in the mirror doing her hair, changing her clothes and applying lipstick/makeup. Patient was compliant with taking scheduled meds and requested no prns, no complaints of pain, Cont to monitor
--- NOTE | 2021-09-21 15:57 | NUR ---
Patient was alert and orient. She stayed in the bed throughout the shift. She was attempted to get up into the chair this morning however, she could not sit at the edge of the bed and right away she stated that her knee hurts. Patient was repositioned and boosted up in the bed. Patient IV was removed by her in the night. She is currently getting Bumex IV but the provider stated to go ahead and leave the PIV out since 4 attempts to put in PIV by 2 RNs were not successful. Bumex PO were ordered. Patient had L leg XRay today. She had visitors throughout the shift, her appetite was fair for meals and she was continent of bowel and bladder. Contine to monitor patient while on the unit
--- NOTE | 2021-09-22 11:36 | NUR ---
RN recvd handoff of patient care from NATE Rizvi at 0700. Patient was in bed and appeared asleep. Also did not appear to be in distress Patient is now awake, no complaints of pain, and no requests at this time
--- NOTE | 2021-09-22 16:52 | NUR ---
Patient was alert and orient, her affect was restricted and mood was congruent. Patient spent time in her bed and in the mirror applying makeup and combing her hair. She did take a nap throughout the day. Patient complained of no pain and only request was "a cup of Pepsi". Patient overall was pleasant. RN offered to assist her with a shower and she stated, "I got it" in such a low tone. Patient appetite was fair. She is awaiting guardanship before discharging.
--- NOTE | 2021-09-23 13:39 | NUR ---
GROUNDSKEEPING MAINTENANCE AM ASSESSMENT I AGREE WITH AND WAS PRESENT DURING THE NURSING STUDENTS ASSESSMENT
--- NOTE | 2021-09-23 16:10 | NUR ---
PT IS A/OX3, PLEASANT AND COOPERATIVE. THE PT IS UP IND AND WITH MINIMAL ASSIST FOR LONGER DISTANCE. PT REPORTED LEFT KNEE PAIN TODAY AND WAS MEDICATED WITH TYLENOL FOR PAIN. THE PT APPEARS TO BE BREATHING EASILY ON RA AT THIS TIME. CALL LIGHT IN REACH, WILL CONTINUE TO MONITOR AND ASSESS FOR CHANGES
--- NOTE | 2021-09-23 17:37 | NUR ---
PT RESTED PEACEFULLY THROUGHOUT THE DAY. AM MEDS GIVEN PER ORDER. PRN TYLENOL ADMINISTERED 2X THROUGHOUT SHIFT DUE TO PAIN IN PT'S L KNEE. PT HAD REPORTED AN ITCHING ON HER UPPER BACK. ASSESSMENT REVEALED NO OBVIOUS RASH OR OTHER ABNORMALITIES. NO OTHER COMPLAINTS OR SIGNIFICANT EVENTS OCCURRED DURING SHIFT.
--- NOTE | 2021-09-24 05:59 | NUR ---
Rn summary: Patient is alert and oriented x3. Pt is up independantly in room. Pt was medicated at beginning of shift with tylenol 650mg and melatonin 5mg. Pt did rest better tonight per the MILIEU COUNSELOR than usual. Pt assessment is WNL. Waiting gaurdianship and placement. Stable.
--- NOTE | 2021-09-24 18:49 | NUR ---
MS MOSS IS ALERT AND ORIENTATED TO SELF, DATE, PLACE, SOMETIMES SHE IS FORGETFUL ABOUT HER SITUATION OR HAS SOME CONFUSED CONVERSATIONS. UP INDEPENDENTLY IN HER ROOM TO BATHROOM ETC. C/O BILATERAL LEG PAIN, SOMETIMES A 9/10, BUT FACIAL EXPRESSION IS NO GRIMACE, AND SOMETIMES SHE IS WALKING AROUND THE ROOM WHEN SHE TELLS ME SHE HAS 9/10 PAIN. SHE HAS TOLD ME THAT HER LEGS ARE BROKEN, THEN THAT SHE'S DOING WELL AND DOESN'T NEED PAIN MEDS. GIVEN TYLENOL PER PT REQUEST AND THIS SEEMS TO KEEP THE PAIN AT ABOUT 7/10 TO 8/10 PER PT. BED LOW POSITION, CALL LIGHT IN REACH. GIVEN SNACKS TODAY WELL MEAL TRAYS.
--- NOTE | 2021-09-25 06:06 | NUR ---
PT IS AWAKE THIS MORNING. PT SLEPT MOST OF THE NIGHT. VITALS HAVE BEEN STABLE OVERNIGHT NO C/O PAIN, SOB, N/V OVERNIGHT. PT DID MENTION SOMETHING ABOUT HER LEGS BEING BROKEN BUT HER GAIT WAS NORMAL NOR DID SHE LOOK IN DISTRESS WHEN AMBULATING AROUND THE ROOM. NO ACUTE EVENTS OVERNIGHT, PT CALL LIGHT AND BELONGINGS WITHIN REACH.
--- NOTE | 2021-09-25 10:54 | NUR ---
MS MOSS IS ALERT AND ORIENTATED TO SELF, PLACE, TIME, AND CAN DESCRIBE MOST OF HER SITUATION. SHE IS SOMETIMES A LITTLE CONFUSED. UP AND STEADY IN HER ROOM, MOVING AROUND WELL IN THERE. SHE HAS GOOD APPETITE AND DENIES ANY PROBLEMS VOIDING OR WITH BM. GENERAL C/O LEG PAIN. SWELLING TO BLE R GREATER THAN L, NOT PITTING, PT SAID SHE WAS UNABLE TO REMOVE HER BOOTS THIS MORNING FOR ME TO ASSESS HER FEET AT THIS TIME.
--- NOTE | 2021-09-25 18:09 | NUR ---
MS MOSS HAS HAD NO CHANGES TODAY. A&O, SOMETIMES FORGETFUL. SHE SAID HER LEG/KNEE PAIN WAS HELPED WITH TYLENOL. MOVING INDEPENDENTLY IN HER ROOM. NO DISTRESS.
--- NOTE | 2021-09-26 07:30 | NUR ---
SHIFT SUMMARY PT A/O X3, COOPERATIVE, INDEPENDENT IN ROOM,TRACE EDEMA NOTED BLE, NO IV OR MONITOR,MEDICATED WITH TYLENOL X1 FOR LEGS HURTING AND IT WAS EFFECTIVE, NO ACUTE DISTRESS THIS SHIFT AND APPEARED TO REST WELL.
--- NOTE | 2021-09-26 17:47 | NUR ---
NO ACUTE CHANGES FOR MS MOSS TODAY. SHE REMAINS ORIENTATED BUT CONFUSED CONVERSATION THROUGHOUT THE DAY. UP IN ROOM WITH STEADY GAIT. BLE SWELLING, SHE WORE NON SKID SOCKS FOR PART OF THE DAY, BUT PREFERS HER BOOTS ON. CALL LIGHT IN REACH, BED LOW.
--- NOTE | 2021-09-27 05:22 | NUR ---
PT SLEEPING THIS MORNING. PT IS VERY PLEASANT, NO C/O PAIN, SOB, OR N/V OVERNIGHT. PT IS INDEPENDENT AND MOVING AROUND WELL. NO ACUTE CHANGES OVERNIGHT.
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
--- NOTE | 2021-09-28 16:30 | NUR ---
DAY SHIFT SUMMARY 70 YR OLD FEMALE PT WAITING FOR PLACEMENT AND GUARDIANSHIP. NO ACUTE CHANGES THIS SHIFT. PT A/O X2-3 AND INDEPENDENT IN ROOM. CALL LIGHT IN REACH AND ABLE TO CALL APPROPRIATELY.
--- NOTE | 2021-09-28 19:21 | NUR ---
1908 PT SITTING ON EDGE OF BED. PT REPORTS PAIN IN HIPS OF 8-9, GAVE TYLENOL. PT REPORTS SOB, LUNGS ARE CLEAR, NO COUGH, ON RA AT 99%. NO EDEMA OR WOUNDS/SORES, BUT PT REPORTS THAT THIS MORNING HER L LEG HAD SWEELING. WILL EVAL FOR EFFECT. NO OTHER APPARENT SIGNS OF DISTRESS. CALL LIGHT IS IN REACH.
--- NOTE | 2021-09-29 01:05 | NUR ---
09/28/21 2200 PT LYING IN BED, AWAKE, DENIES NEED FOR ANYTHING AT THIS TIME. NO APPARENT SIGNS OF DISTRESS. CALL LIGHT IS IN REACH. 09/28/21 2340 PT SITTING ON EDGE OF BED, DENIES NEED FOR ANYTHING AT THIS TIME. NO APPARENT SIGNS OF DISTRESS. CALL LIGHT IS IN REACH.
--- NOTE | 2021-09-29 04:07 | NUR ---
0200 PT LYING IN BED, EYES CLOSED, APPEARS TO BE RESTING. BREATHING IS EVEN, UNLABORED. NO APPARENT SIGNS OF DISTRESS. CALL LIGHT IS IN REACH.
--- NOTE | 2021-09-29 04:08 | NUR ---
PT LYING IN BED, EYES CLOSED, WAKES EASILY TO VERBAL STIMULI. NO APPARENT SIGNS OF DISTRESS. CALL LIGHT IS IN REACH.
--- NOTE | 2021-09-29 04:08 | NUR ---
PT IS AAO X 2-3, PT REPORTS SOB BUT LUNGS ARE CLEAR, NO COUGH, ON RA AT 99%. PT REPORTED PAIN IN HIPS, GOT TYLENOL.
--- NOTE | 2021-09-29 06:16 | NUR ---
PT LYING IN BED, EYES CLOSED, APPEARS TO BE RESTING. BREATHING IS EVEN, UNLABORED. NO APPARENT SIGNS OF DISTRESS. CALL LIGHT IS IN REACH. NO OTHER CHANGES THIS SHIFT.
--- NOTE | 2021-09-29 19:35 | NUR ---
YEND OF SHIFT SUMMARY: PATIENT MEDICATED ONCE FOR PAIN PER PRNS. PATIENT ABLE TO MAKE HER NEEDS KNOWN FOR SNACKS AND SUPPLIES. PATIENT HAS DIFFICULTY WITH WORD FINDING AT TIMES (FOR EXAMPLE: HAD DIFFICULTY REMEMBER "HAND FLAT OPTICAL ELEMENT MAKER"). PATIENT INDEPENDENT IN THE ROOM. PATIENT STEADY ON FEET. PATIENT CALM AND COOPERATIVE THROUGHOUT THE SHIFT. NO APPARENT HALLUCINATIONS WHEN SPEAKING WITH THE PATIENT.
--- NOTE | 2021-09-30 03:57 | NUR ---
SHIFT SUMMARY PATIENT HAD NO ACUTE CHANGES OBSERVED. AXOX 2-3 AND INDEPENDENT IN THE ROOM. NO IV ACCESS. NO HALLUCINATIONS NOTED. ABLE TO MAKE NEEDS KNOW. MILD HYPERTENSION. AFEBRILE. DENIES PAIN, SOB AND N/V. COOPERATIVE WITH CARE. CALL LIGHT IN REACH. BED IN LOWEST POSITION. WILL CONTINUE TO MONITOR UNTIL DAY SHIFT NURSE ASSUMES CARE.
--- NOTE | 2021-10-01 03:59 | NUR ---
SHIFT SUMMARY PATIENT HAD NO ACUTE CHANGES OBSERVED. AXOX 3 AND INDEPENDENT IN ROOM. HX ALZHEIMER DEMENTIA. ENJOYS MAKEUP MIRROR IN ROOM, SITTING ON SIDE OF BED FIRST PART OF SHIFT. NO IV ACCESS. DENIES PAIN, SOB, AND N/V. AFEBRILE. COOPERATIVE WITH CARE. CALL LIGHT IN REACH. BED IN LOWEST POSITION. WILL CONTINUE TO MONITOR UNTIL DAY SHIFT NURSE ASSUMES CARE.
--- NOTE | 2021-10-01 19:53 | NUR ---
BP ELEVATED (165/101). ASYMPTOMATIC. CALL PLACED TO MD SCIENTIFIC DIRECTOR. ORDERS FOR HYDRALAZINE IV OBTQAINED - SEE MAR FOR DETAILS. CALL LIGHT IN REACH
--- NOTE | 2021-10-02 05:04 | NUR ---
COIN MACHINE COLLECTOR SUPERVISOR SUMMARY AWAKE INTERMITTENTLY THROUGHOUT NOCT. ARGUING LOUDLY AT TIMES APPARENTLY WITH SELF. INTRMITTENT APPLICATION OF MAKE UP USING MIRROR ON TABLE. BP ELEVATED. MD WAS NOTIFIED AND MEDICATION GIVEN - SEE MAR FOR DETAILS. CALL LIGHT IN REACH
--- NOTE | 2021-10-02 17:05 | NUR ---
PT ATTEMPTED TO LEAVE THE FACILITY AROUND 1500 TODAY. SHE WAS SEEN WALKING TOWARD THE ELEVATORS WITH HER BELONGINGS AND SHE HAD CALLED A TAXI, WHICH WAS WAITING FOR HER. RN WAS ABLE TO TALK THE PATIENT INTO RETURNING TO HER ROOM, AND PATIENT HAS MADE A COUPLE ATTEMPTS TO LEAVE THEREAFTER. PATIENT CAN BE REDIRECTED FAIRLY WELL AND IS CALM, NOT CONFRONTATIONAL. PATIENT IS ON A MEDICAL HOLD. STAFF IS WORKING ON TRANSFERRING HER TO A ROOM ON THE LOCKDOWN WING.
--- NOTE | 2021-10-02 19:34 | NUR ---
192 PT SITTING ON EDGE OF BED, REPORTS PAIN IN ABD OF 6-7/10, GAVE TYLENOL, WILL EVAL FOR EFFECT. PT REPORTS SLIGHT SOB, LUNGS CLEAR, NO COUGH, ON RA AT 98%. NO OTHER APPARENT SIGNS OF DISTRESS. CALL LIGHT IS IN REACH.
--- NOTE | 2021-10-03 03:39 | NUR ---
10/02/21 2200 PT LYING IN BED, AWAKE, WATCHING TV. NO APPARENT SIGNS OF DISTRESS. CALL LIGHT IS IN REACH.
--- NOTE | 2021-10-03 03:40 | NUR ---
0000 PT SITTING ON EDGE OF BED, NO APPARENT SIGNS OF DISTRESS. CALL LIGHT IS IN REACH.
--- NOTE | 2021-10-03 03:41 | NUR ---
PT LYING IN BED, EYES CLOSED, APPEARS TO BE RESTING. BREATHING IS EVEN, UNLABORED. NO APPARENT SIGNS OF DISTRESS. CALL LIGHT IS IN REACH.
--- NOTE | 2021-10-03 03:41 | NUR ---
0200 PT LYING IN BED, EYES CLOSED, APPEARS TO BE RESTING. BREATHING IS EVEN, UNLABORED. NO APPARENT SIGNS OF DISTRESS. CALL LIGHT IS IN REACH.
--- NOTE | 2021-10-03 03:42 | NUR ---
PT IS AAO X 2-3, FORGETFUL. REPORTED ABD PAIN, GOT TYLENOL. REPORTED A LITTLE SOB, LUNGS CLEAR, NO COUGH, ON RA AT 98%.
--- NOTE | 2021-10-03 06:05 | NUR ---
PT SITTING ON EDGE OF BED, AWAKE, WANTS TO KNOW WHY PEOPLE KEEP COMING IN AND OUT OF HER ROOM AND WHY SHE DOESN'T HAVE A LOCK ON HER ROOM. SHE HAS HER WALKER IN FRONT OF THE DOOR. STATES SHE IS GOING TO HAVE HER SON COME IN AND PUT A LOCK ON THE DOOR. NO OTHER APPARENT SIGNS OF DISTRESS. CALL LIGHT IS IN REACH. NO OTHER CHANGES THIS SHIFT.
--- NOTE | 2021-10-03 20:30 | NUR ---
2007 PT SITTING UP IN BED, DENIES ANY PAIN OR SOB AT THIS TIME. NO APPARENT SIGNS OF DISTRESS. REQUESTED AND RECIEVED FRANDY OLIVEROS. CALL LIGHT IS IN REACH.
--- NOTE | 2021-10-03 23:42 | NUR ---
2200 PT LYING IN BED, AWAKE, WATCHING TV. NO APPARENT SIGNS OF DISTRESS. CALL LIGHT IS IN REACH.
--- NOTE | 2021-10-03 23:43 | NUR ---
PT LYING IN BED, AWAKE, WATCHING TV. NO APPARENT SIGNS OF DISTRESS. CALL LIGHT IS IN REACH.
--- NOTE | 2021-10-04 05:33 | NUR ---
0200 PT LYING IN BED, EYES CLOSED, APPEARS TO BE RESTING. BREATHING IS EVEN, UNLABORED. NO APPARENT SIGNS OF DISTRESS. CALL LIGHT IS IN REACH.
--- NOTE | 2021-10-04 05:34 | NUR ---
0400 PT LYING IN BED, EYES CLOSED, APPEARS TO BE RESTING. WAKES EASILY TO VERBAL STIMULI. NO APPARENT SIGNS OF DISTRESS. CALL LIGHT IS IN REACH.
--- NOTE | 2021-10-04 05:34 | NUR ---
PT IS AAO X 2-3, FORGETFUL, ON RA. DENIED ANY DISCOMFORT FOR THIS SHIFT.
--- NOTE | 2021-10-04 16:53 | NUR ---
PATIENT WAS ALERT AND ORIENTATED X 3. SHE IS FORGETFUL AT TIMES. 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 SHE IS PRESENTLY WAITING PLACEMENT AT [facility] IN [place]. PATIENTS IV BP MEDICATIONS WAS DISCONTINUED TODAY. LS CLEAR. NO PAIN. NO MEDICAL COMPLAINTS.
--- NOTE | 2021-10-05 05:04 | NUR ---
SHIFT SUMMARY: PATIENT [facility], PATIENT REMOVED ITEMS WITHOUT INCIDENT WHEN ASKED. SHE VERBALIZED UNDERSTAING ON IMPORTANCE OF KEEPING DOOR WAYS CLEAR FOR SAFETY. PATIENT STATES "I DIDN'T WANT THEM TO COME IN AND I CAN'T LOCK IT" REASSURED PATIENT SHE IS IN THE HOSPITAL AND SAFE. NO FURTEHR INCIDENTS. MEDICATED FOR PAIN AND SLEEP PER EMAR. WCTM.
[2021-10-05 05:06] LABS: Anion Gap 6 mmol/L (6-16); Blood Urea Nitrogen 21 mg/dL (8-24); CO2, Blood 28 mmol/L (21-32); Chloride, Blood 105 mmol/L (98-108); Creatinine, Blood 0.72 mg/dL (0.40-1.00); Glomerular Filtration Rate >60 (60-); Glucose, Blood 96 mg/dL (70-99); Potassium, Blood 3.6 mmol/L (3.5-5.5); Sodium, Blood 139 mmol/L (136-145)
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
--- NOTE | 2021-10-06 03:15 | NUR ---
Received patient alert and oriented. No acute distress noted. Patient sitting on the bed, breathing at room air, unlabored. No new events occurs. Patient is waiting for placement. We will continue to monitor until report given to the oncoming nurse.
--- NOTE | 2021-10-06 10:36 | NUR ---
PATIENT WAS A AND O 4X SLIGHTLY FORGETFUL. PATIENT AWAITING GAURDIANSHIP FOR [facility]. NO ACUTE EVENTS. PATIENT HAD SLIGHT KNEE PAIN RELIEVED BY TYLENOL.
--- NOTE | 2021-10-06 19:29 | NUR ---
191 PT SITTING ON EDGE OF BED, REPORTS A LITTLE SOB, LUNGS CLEAR, NO COUGH, ON RA AT 99%. REPORTS PAIN IN ABD/RIBS ACHES 01/30, GAVE TYLENOL, WILL EVAL FOR EFFECT. NO OTHER APPARENT SIGNS OF DISTRESS. CALL LIGHT IS IN REACH.
--- NOTE | 2021-10-07 04:28 | NUR ---
10/06/21 2200 PT LYING IN BED, AWAKE, NO APPARENT SIGNS OF DISTRESS. CALL LIGHT IS IN REACH.
--- NOTE | 2021-10-07 04:28 | NUR ---
0000 PT LYING IN BED, AWAKE, WATCHING TV. NO APPARENT SIGNS OF DISTRESS. CALL LIGHT IS IN REACH.
--- NOTE | 2021-10-07 04:29 | NUR ---
0200 PT LYING IN BED, AWAKE, NO APPARENT SIGNS OF DISTRESS. CALL LIGHT IS IN REACH.
--- NOTE | 2021-10-07 04:29 | NUR ---
PT LYING IN BED, AWAKE, WATCHING TV. NO APPARENT SIGNS OF DISTRESS. CALL LIGHT IS IN REACH.
--- NOTE | 2021-10-07 04:30 | NUR ---
PT IS AAO X 2-3, REPORTS A LITTLE SOB, LUNGS CLEAR, NO COUGH, ON RA AT 99%. PT REPORTED ABD/RIB PAIN, GOT TYLENOL AT HS.
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
--- NOTE | 2021-10-07 20:53 | NUR ---
1915 PT SITTING ON EDGE OF BED, REPORTS PAIN ALL OVER 8/10, GAVE TYLENOL. WILL EVAL FOR EFFECT. NO OTHER APPARENT SIGNS OF DISTRESS. CALL LIGHT IS IN REACH.
--- NOTE | 2021-10-08 01:08 | NUR ---
10/07/21 2200 PT LYING IN BED, AWAKE, NO APPARENT SIGNS OF DISTRESS. CALL LIGHT IS IN REACH.
--- NOTE | 2021-10-08 01:08 | NUR ---
0000 PT LYING IN BED, EYES CLOSED, APPEARS TO BE RESTING. BREATHING IS EVEN, UNLABORED. NO APPARENT SIGNS OF DISTRESS. CALL LIGHT IS IN REACH.
--- NOTE | 2021-10-08 04:27 | NUR ---
0200 PT LYING IN BED, EYES CLOSED, APPEAR TO BE RESTING. BREATHING IS EVEN, UNLABORED. NO APPARENT SIGNS OF DISTRESS. CALL LIGHT IS IN REACH.
--- NOTE | 2021-10-08 04:27 | NUR ---
PT LYING IN BED, EYES CLOSED, APPEARS TO BE RESTING. WAKES EASILY TO VERBAL STIMULI. NO APPARENT SIGNS OF DISTRESS. CALL LIGHT IS IN REACH.
--- NOTE | 2021-10-08 04:28 | NUR ---
PT IS AAO X 2-3, ON RA, REPORTED PAIN ALL OVER, GAVE TYLENOL AT HS.
--- NOTE | 2021-10-08 06:06 | NUR ---
PT LYING IN BED, EYES CLOSED, APPEARS TO BE RESTING. BREATHING IS EVEN, UNLABORED. NO APPARENT SIGNS OF DISTRESS. CALL LIGHT IS IN REACH. NO OTHER CHABNGES THIS SHIFT.
--- NOTE | 2021-10-08 16:40 | NUR ---
DAY SHIFT SUMMARY 70 YR OLD FEMALE PT WAITING PLACEMENT/GUARDIANSHIP. A/O X2 - INDEPENDENT. PT PLEASANT AND COOPERATIVE TODAY. NO ACUTE CHANGES THIS SHIFT. CALL LIGHT WITHIN REACH. PT DOES NOT CALL APPROPRIATELY, PLEASANTLY CONFUSES/FORGETFUL. FREQUENT ROUNDING.
--- NOTE | 2021-10-09 06:33 | NUR ---
SHIFT SUMMARY PATIENT ALERT AND ORIENTED X3. HAD NO COMPLAINTS OF PAIN OR SHORTNESS OF BREATH. NO ACUTE ISSUES NOTED OVERNIGHT. CALL LIGHT WITHIN REACH. REPORT GIVEN TO ONCOMING RN.
--- NOTE | 2021-10-09 18:12 | NUR ---
SHIFT SUMMARY PATIENT ALERT AND ORIENTED X3. C/O PAIN TO BILATERAL LEGS, TYLENOL ADMINISTRATED AND EFFECTIVE. DENIES SOB, INDEPENDENT IN HER ROOM. NO ACUTE CHANGES [id number] THE SHIFT.
--- NOTE | 2021-10-10 07:16 | NUR ---
SHIFT SUMMARY PATIENT ALERT AND ORIENTED X3. HAD NO COMPLAINTS OF PAIN OR SHORTNESS OF BREATH. NO ACUTE ISSUES NOTED. CALL LIGHT WITHIN REACH. REPORT GIVEN TO ONCOMING RN.
--- NOTE | 2021-10-10 08:00 | NUR ---
pt sitting on the edge of the bed, awake a/ox3, odd affect, cooperative with care, follows commands well, reports pain in her knees, requested tylenol for that, lungs are clear t/o, on r/a, resp even and unlabored, no cough noted, hrr, bounding, no edema noted, ppp+1, cap refill <3sec, vs stable, afebrile, iv site to right wrist, s.l. reports voiding without diff, and reg bm's, up ad yamilex indep in room, stephane, call light in reach.
--- NOTE | 2021-10-10 16:54 | NUR ---
no acute events, pt up in room, cooperative. no needs. call light in reach.
--- NOTE | 2021-10-10 18:22 | NUR ---
pt has no complaints, busy in her room, has been cooperative all day. call light in reach.
--- NOTE | 2021-10-11 06:50 | NUR ---
SHIFT SUMMARY: NO ACUTE CHANGES, VSS, NO REPORTS OF PAIN OR DISCOMFORT. TOLERATING DIET WELL AND REQUESTED TWO SNACKS AT HS.
--- NOTE | 2021-10-11 19:33 | NUR ---
191 PT SITTING ON EDGE OF BED, DENIES ANY DISCOMFORT AT THIS TIME. IV IS NO LONGER PATIENT, DC'D IV, PT TOLERATED PROCEDURE WELL. PT REQUESTED AND RECIVED A PEPSI AND FRANDY CRACKERS. NO OTHER APPARENT SIGNS OF DISTRESS. CALL LIGHT IS IN REACH.
--- NOTE | 2021-10-12 01:56 | NUR ---
10/11/21 2200 PT LYING IN BED, AWAKE, WATCHING TV. NO APPARENT SIGNS OF DISTRESS. CALL LIGHT IS IN REACH.
--- NOTE | 2021-10-12 01:56 | NUR ---
0000 PT LYING IN BED, AWAKE, WATCHING TV. NO APPARENT SIGNS OF DISTRESS. CALL LIGHT IS IN REACH.
--- NOTE | 2021-10-12 01:57 | NUR ---
PT LYING IN BED, AWAKE, REQUESTED AND RECIEVED PEPSI. NO APPARENT SIGNS OF DISTRESS. CALL LIGHT IS IN REACH.
--- NOTE | 2021-10-12 05:53 | NUR ---
0400 PT LYING IN BED, EYES CLOSED, APPEARS TO BE RESTING. BREATHING IS EVEN, UNLABORED. NO APPARENT SIGNS OF DISTRESS. CALL LIGHT IS IN REACH.
--- NOTE | 2021-10-12 05:54 | NUR ---
PT IS AAO X 2-3, FORGETFUL. NO COMPLAINTS OF ANY DISCOMFORT THIS SHIFT. PT DID REQUEST AND RECIEVE TYLENOL BUT SHE DENIED PAIN.
--- NOTE | 2021-10-13 00:37 | NUR ---
BETTY STATED SHE WANTED MELATONIN FOR SLEEP. PATIENT THEN ACTED LIKE SHE TOOK MEDICATION AND PUT PILL ON THE SIDE OF HER LEG. THIS NURSE WAISTED MEDICATION. PATIENT STATED I DON'T WANT IT MY FRIEND TOLD ME TO TAKE IT. EXPLAINED TO PATIENT SHE REQUESTED THIS MEDICATION ALSO SHE DOES NOT HAVE TO TAKE THIS MEDICATION, VERBALIED UNDERSTANDING.
--- NOTE | 2021-10-13 04:27 | NUR ---
ALERT X'S 3, ABLE TO MAKE NEEDS KNOWN WITHOUT DIFFICULTY. NO COMPLAINTS THROUGH NIGHT. AMBULATING INDEPENENDTLY IN ROOM, GAIT STEADY. FLUIDS ENCOURAGED AT BEDSIDE. SAFETY MAINTAINED, CALL [place] IN REACH.
--- NOTE | 2021-10-13 19:07 | NUR ---
PATIENT ALERT AND ORIENTED X3 WITH SOME CONFUSION. PATIENT ABLE TO AMBULATE IN HER ROOM. PATIENT COOPERATIVE WITH CARES AND REMAINS STABLE. PATIENT WAITING FOR PLACEMENT AND WILL BE DISCHARGED SOON IT HAPPENS.
--- NOTE | 2021-10-14 06:38 | NUR ---
Patient is alert and oriented x3 sometimes forgetful of situation. She is independent and is able to let needs be known. Snacks provided. No complains of pain. No signs of distress. Call light within reach.
--- NOTE | 2021-10-14 17:06 | NUR ---
PATIENT HAD NON EVENTFUL DAY. SLIGHT EDEMA NOTED IN RIGHT LEG, WHICH SHE SAYS HAS BEEN THERE SINCE SHE BROKE IT A COUPLE YEARS AGO. MOOD IS GOOD. PATIENT DENIES ANY PAIN OR OTHER MEDICAL CONCERNS.
--- NOTE | 2021-10-15 06:22 | NUR ---
Patient is alert and oriented x3 forgetful of situation. No complains of pain. Independent and ambulatory. Call light within reach. Snacks provided. Patient stays in room and talks to herself sometimes, not agitated. Pleasant to have conversation with.
--- NOTE | 2021-10-15 16:52 | NUR ---
PATIENT HAD ONE COMPLAINT OF KNEE PAIN TODAY. SHE REQUESTED TYLENOL. PAIN WAS REDUCED TO 0. NO OTHER CONCERNS.
--- NOTE | 2021-10-15 18:21 | NUR ---
PATIENT HAS A POOR APPETITE. SHE EATS A COUPLE PACKS OF FRANDY CRACKERS, AND HER NUTRITIONAL SUPPLEMENT DURING MEAL TIMES. SHE STATES THIS IS BECASUE OF PANCREATITIS. SHE DENIES ABD PAIN. DENIES N&V. SHE DOESN'T APPEAR TO HAVE SYMPTOMS OF A PANCREATITIS FLARE UP.
--- NOTE | 2021-10-16 04:19 | NUR ---
PT IS ASLEEP THIS MORNING. PT ALERT AND ORIENTED X2-3, ON RA, NOT MONITORED. PT DID C/O PAIN IN THE BLE, MEDICATED PER EMAR. OTHERWISE NO ACUTE EVENTS OVERNIGHT. PT CALL LIGHT AND BELONGINGS WITHIN REACH.
--- NOTE | 2021-10-16 15:13 | NUR ---
SHIFT SUMMARY PATIENT ALERT AND ORIENTED X 2-3. C/O PAIN TO BILATERAL LEGS, TYLENOL ADMINISTRATED AND EFFECTIVE. DENIES SOB AT RA. PATIENT IS INDEPENDENT IN HER ROOM. NO ACUTE CHANGES A THIS TIME.
--- NOTE | 2021-10-17 07:33 | NUR ---
PT ASLEEP THIS MORNING. PT ALERT AND ORIENTED X3 CAN BE FORGETFUL, ON RA, NOT MONITORED. NO COMPLAINTS OF SOB OR N/V OVERNIGHT. TYLENOL GIVEN PER EMAR FOR LEG PAIN. OTHERWISE NO ACUTE EVENTS OVERNIGHT, PT CALL LIGHT AND BELONGINGS WITHIN REACH.
--- NOTE | 2021-10-17 16:40 | NUR ---
SHIFT SUMMARY PATIENT ALERT AND ORIENTED X 2-3. ABLE TO VERBALIZE NEEDS. DENIES SOB AT RA INDEPENDENT IN HER ROOM. TYLENOL ADMINISTRATED THIS MORNING FOR BILATERAL LEGS PAIN, MEDICATION EFFECTIVE. NO ACUTE CHANGES AT THIS TIME.
--- NOTE | 2021-10-18 03:16 | NUR ---
SHIFT SUMMARY Patient independent in her room. Breathing at room air. No complaint of pain or diconfort voices. Patient is able to communicates her needs. She is waiting on placement. No other issue to report at this time. We are monitoring patient until report given to the oncoming nurse.
--- NOTE | 2021-10-18 18:53 | NUR ---
PT ALERT AND ORIENTED X3. PT HAD A PSYCHOTIC EPISODE TODAY AND WAS YELLING AND TALKING TO THE DEVIL. WHEN RN ATTEMPTED TO WALK INTO THE ROOM PT STATED TO HOLD ON A SECOND. PT WAS HEARD HAVING A CONVERSATION WITH NO ONE ELSE IN THE ROOM EXCEPT HERSELF.
--- NOTE | 2021-10-19 05:51 | NUR ---
No acute changes through night. Denied pain or discomfort. Up independently in room. Resting peacefully in bed at this time. Safety maintained, call [facility] in reach.
--- NOTE | 2021-10-19 16:31 | NUR ---
PATIENT ALERT AND ORIENTED X2-3. NO PSYCHOSIS EPISODES OBSERVED BY DAY SHIFT RN TODAY. MD PLACED ORDERES FOR SCHEDULED SEROQUEL AND PRN IF NEEDED. PATIENT IN ROOM FOR MOST OF SHIFT. PATIENT INDEPENDANT IN ROOM. SCHEDULED DAY RX GIVEN TO PATIENT. NO REPORTS OF PAIN OR COMPLICATION. WILL REPORT TO ONCOMING RN UPON ARRIVAL.
--- NOTE | 2021-10-19 22:29 | NUR ---
ALERT TO PERSON AND PLACE. SITTING ON BED PUTTING ON MAKEUP. REFSUED PM SEROQUEL, STATED I DON'T NEED IT, EDUCATED PATIENT ON MEDICATION, CONTINUED TO REFUSE. SAFETY MAINTAINED, CALL [place] IN REACH.
--- NOTE | 2021-10-20 05:38 | NUR ---
No acute changed through night. Currently sitting peacefully in bed. Safety maintained, call townsend in reach.
[2021-10-20] MEDS ORDERED: Prinivil10 MG PO (11:04)
[2021-10-20] MEDS ORDERED: Acetaminophen325 M1 PO (11:04)
[2021-10-20] MEDS ORDERED: ONDA4 PO (11:05)
[2021-10-20] MEDS ORDERED: QUET25 PO ×2 (11:05)
--- NOTE | 2021-10-20 12:54 | NUR ---
PATIENT ALERT AND ORIENTED X3-4. PATIENT DISCHARGED TO INTERMEDIATE SETTING DUE TO BEING GRAVE DISABLED. MED REC COMPLETED NO NEW MEDS SENT FROM HOSPITAL PATIENT'S HOME MEDS ARE TO BE REFILLED AT HER PREFERRED PHARMACY. PATIENT STATED NO QUESTIONS AFTER COVERING MEDICATIONS AND FOLLOW UP APPOINTMENTS. PATIENT'S TRANSPORTATION PICKED HER UP AND PATIENT HAS BEEN DISCHARGED. PATIENT TAKEN BY WHEELCHAIR.
== END 2021-10-20 12:37 | disposition home or self-care (01) ==
LOC: ER 16:22 → EOR 16:23 → MEDS 16:23 → ER 16:23 → MEDS 16:23
PROVIDERS: Internal Medicine; Physician Assistant; ADMIT Internal Medicine
DX: G30.9 Alzheimer's disease, unspecified (principal); F02.80 Dementia in other diseases classified elsewhere, unspecified severity, without behavioral disturbance, psychotic disturbance, mood disturbance, and anxiety; L89.329 Pressure ulcer of left buttock, unspecified stage; L89.319 Pressure ulcer of right buttock, unspecified stage; F17.210 Nicotine dependence, cigarettes, uncomplicated; E86.0 Dehydration; R82.81 Pyuria; F20.9 Schizophrenia, unspecified; I10 Essential (primary) hypertension; N17.9 Acute kidney failure, unspecified; Z20.822 Contact with and (suspected) exposure to COVID-19
CPT/HCPCS: 0241U; 36415; 80048; 80053; 80069; 81001; 82248; 82947; 85025; 87077; 87086; 87186; 90686; 93005; 93010; 96372; 96374; 97110; 97161; 97530; 99285-25; A9270; G0378; G0480; J0360; J1650

== ENCOUNTER 2023-08-15 09:32 | Emergency (ER) | payer OTHER ==
[~2023-08-15] VITALS: Ht 154.9 cm; Wt 56.7 kg
[~2023-08-15 09:32] MED LIST changes: +Acetaminophen325 M1 PO; +ONDA4 PO; +Prinivil10 MG PO; +QUET25 PO
[2023-08-15 10:16] VITALS: BP 162/69
[2023-08-15 10:31] LABS: BASOPHILS ABSOLUTE AUTO 0.03 K/mm3 (0.00-0.23); BASOPHILS PERCENT AUTO 1 % (0-2); EOSINOPHILS ABSOLUTE AUTO 0.23 K/mm3 (0.00-0.68); EOSINOPHILS PERCENT AUTO 6 % (0-6); Hematocrit 38.2 % (33.0-51.0); Hemoglobin 12.4 g/dL (11.5-16.0); IMMATURE GRAN ABSOLUTE AUTO 0.02 K/mm3 (0.00-0.10); IMMATURE GRAN PERCENT AUTO 1 % (0-1); LYMPHOCYTES ABSOLUTE AUTO 1.33 K/mm3 (0.84-5.20); LYMPHOCYTES PERCENT AUTO 32 % (21-46); MONOCYTES ABSOLUTE AUTO 0.36 K/mm3 (0.16-1.47); MONOCYTES PERCENT AUTO 9 % (4-13); Mean Corpuscular HGB 30.2 pg (26.0-34.0); Mean Corpuscular HGB Conc 32.5 g/dL (31.5-36.5); Mean Corpuscular Volume 93 fL (80-100); Mean Platelet Volume 10.3 fL (9.1-12.4); NEUTROPHILS ABSOLUTE AUTO 2.25 K/mm3 (1.96-9.15); NEUTROPHILS PERCENT AUTO 53 % (41-73); Platelet Count 192 K/mm3 (150-400); RDW Coefficient Variation 13.1 % (11.7-14.2); Red Blood Cell Count 4.11 M/mm3 (3.80-5.20); White Blood Cell Count 4.22 K/mm3 (4.00-11.30)
[2023-08-15 10:52] LABS: Albumin, Blood 3.5 g/dL (3.4-5.0); Albumin/Globulin Ratio 1.2 (0.8-1.8); Bilirubin, Total 0.6 mg/dL (0.1-1.0); Bun/Creatinine Ratio 16.1 (12.0-20.0); Calcium, Blood 9.1 mg/dL (8.5-10.1); Creatinine, Blood 0.75 mg/dL (0.40-1.00); Globulin, Blood 2.9 g/dL (2.2-4.0); Potassium, Blood 3.8 mmol/L (3.5-5.5); Total Protein, Blood 6.4 g/dL (6.4-8.2)
[2023-08-15] MEDS ORDERED: Prednisone10 MG PO (11:06)
[2023-08-15] MEDS ORDERED: BUSP5 PO (14:44)
== END 2023-08-15 14:31 | disposition home or self-care (01) ==
LOC: ER 09:32
PROVIDERS: Student in an Organized Health Care Education/Training Program
DX: L25.9 Unspecified contact dermatitis, unspecified cause (principal); G30.9 Alzheimer's disease, unspecified; F02.80 Dementia in other diseases classified elsewhere, unspecified severity, without behavioral disturbance, psychotic disturbance, mood disturbance, and anxiety; I10 Essential (primary) hypertension; F17.210 Nicotine dependence, cigarettes, uncomplicated; Z79.899 Other long term (current) drug therapy
CPT/HCPCS: 80053; 85025; 99283; J7512